=== PATIENT | female | born 1960 | race Two or more races ===

== ENCOUNTER 2025-02-08 | Outpatient (REF) | payer OTHER, SELFPAY ==
--- OUTSIDE RECORDS SUMMARY | 2025-02-08 10:00 | XMS_ITS | Encounter Summary ---
Author Organization [facility] Address [address] [place] [address] Care Team Providers Care Pick And Shovel Man Name Role Phone Unavailable Primary Care Provider Unavailabl e Reason for Visit * Reason Comments ovarian mass Endometriosis Encounter Details Date Type Department Care Team (Late st Contact Info) Description 02/08/2025 10:00 AM EDT Office Visit [facility] [address] [place] [address] Ceferino Barboza DO [address] [place], [place] [id number] Ovarian mass; Enlarged uterus; Endometrial thickening on ultrasound; Cervical mass Social History Tobacco Use Types Packs/Day Years Used Date Smoking Tobacco: Never Assessed Comments No Sex and Gender Information Value Date Recorded Sex Assigned at Not on file Legal Sex Female 9:08 AM EDT Gender Identity Not on file Sexual Orientation Not on file documented as of this encounter Last Filed Vital Signs Vital Sign Reading Time Taken Comments Blood Pressure 110/70 02/08/2025 10:10 AM EDT Pulse - - Temperature - - Respiratory Rate - - Oxygen Saturation - - Inhaled Oxygen Concentration - - Weight 99.8 kg (220 lb) 02/08/2025 10:10 AM EDT Height 167.6 cm (5' 6 ) 02/08/2025 10:10 AM EDT Body Mass Index 35.51 02/08/2025 10:10 AM EDT documented in this encounter Progress Notes * Debra Salas LPN - 02/08/2025 10:00 AM EDT Reason for Appointment: Patient ID: Adrienne Kirby is a 64 y.o. female who presents for ovarian mass and Endometriosis Patient presents today for Consult appointment. MEDICATIONS Current Outpatient Medications Medication Instructions busPIRone (BUSPAR) 15 mg, 2 times daily hydroCHLOROthiazide (HYDRODIURIL) 12.5 mg, Daily olmesartan (BENICAR) 10 mg, Daily verapamil (CALAN) 80 mg, Twice a day (mid-day and evening) ALLERGIES Not on File PROBLEMS Active Ambulatory Problems Diagnosis Date Noted No Active Ambulatory Problems Resolved Ambulatory Problems Diagnosis Date Noted No Resolved Ambulatory Problems Past Medical History: Diagnosis Date Anxiety about health Basal cell carcinoma Chronic kidney disease, stage 3 ([facility]) High blood pressure HISTORY PAST MEDICAL HISTORY SOCIAL HISTORY Past Medical History: Diagnosis Date Anxiety about health Basal cell carcinoma Chronic kidney disease, stage 3 ([facility]) High blood pressure Social History Tobacco Use Smoking status: Not on file Smokeless tobacco: Not on file Substance Use Topics Alcohol use: Not on file Drug use: Not on file FAMILY HISTORY Family History Problem Relation Name Age of Onset Lung disease Mother Heart attack Father Stroke Father SURGICAL HISTORY Past Surgical History: Procedure Laterality Date RETINAL DETACHMENT SURGERY SKIN GRAFT REVIEW OF SYSTEMS Review of Systems: Review of Systems Constitutional: Negative. HENT: Negative. Eyes: Negative. Respiratory: Negative. Cardiovascular: Negative. Gastrointestinal: Negative. Genitourinary: Negative. Musculoskeletal: Negative. Skin: Negative. Neurological: Negative. All other systems reviewed and are negative. Hematological: Negative. Endocrine: Negative. Allergic/Immunologic: Negative. OBJECTIVE Objective: Physical Exam Constitutional: Appearance: Normal appearance. She is well-developed. Genitourinary: Vulva normal. Cardiovascular: Rate and Rhythm: Normal rate and regular rhythm. Pulmonary: Effort: Pulmonary effort is normal. Breath sounds: Normal breath sounds. Abdominal: General: Bowel sounds are normal. There is no distension. Palpations: Abdomen is soft. Tenderness: There is no abdominal tenderness. There is no guarding or rebound. Musculoskeletal: General: No swelling. Normal range of motion. Right lower leg: No edema. Left lower leg: No edema. Neurological: Mental Status: She is alert and oriented to person, place, and time. Skin: General: Skin is warm and dry. Psychiatric: Mood and Affect: Mood normal. Behavior: Behavior normal. Vitals and nursing note reviewed. Exam conducted with a assembly mechanic present. Vitals: Estimated body mass index is 35.51 kg/m?? as calculated from the following: Height as of this encounter: 5' 6 . Weight as of this encounter: 220 lb. BP: 110/70 No LMP recorded. Patient is postmenopausal. ASSESSMENT & PLAN ICD-10-CM 1. Ovarian mass N83.8 2. Enlarged uterus N85.2 3. Endometrial thickening on ultrasound R93.89 Pt presents as a follow up. Reviewed labs and ultrasound with pt in detail. Pt CA125 is elevated and will be referred to [facility] for total hysterectomy. Pt voiced understanding. Discussed doing embx in office, pt considering. Pt has high anxiety regarding all testing and results. Upon pelvic exam with speculum, mass protruding from cervical os, removed from cervix with ring forcep, sent to pathology. Pt will await referral to Dr Tabor Documented by Derba Salas LPN on behalf of: Ceferino Barboza DO documented in this encounter Plan of Treatment Not on file documented as of this encounter Visit Diagnoses Diagnosis Ovarian mass Unspecified noninflammatory disorder of ovary, fallopian tube, and broad ligament Enlarged uterus Hypertrophy of uterus Endometrial thickening on ultrasound Cervical mass Other specified noninflammatory disorder of cervix documented in this encounter
--- OUTSIDE RECORDS SUMMARY | 2025-02-15 10:00 | XMS_ITS | Encounter Summary ---
Author Organization [employer] [facility] tem Address [id number] [address] [place] [address] Care Team Providers Care Aerodynamicist Name Role Phone Unavailable Primary Care Provider Unavailabl e Reason for Referral * Cardiology (Routine) - Authorized Specialty Diagnoses / Procedures Referred By Contac t Referred To Contact Diagnoses Ovarian mass Preoperative clearance Procedures ECG 12 lead Lynda Anders MD [address] [place] [address], [address] [place] [address] Phone: tel: fax: Referral ID Status Reason Start Date Expiration Date V isits Requested Visits Authorized [id number] Authorized 02/15/2025 02/15/2026 1 1 Reason for Visit * Reason Comments New Patient * Consultation (Routine) - Pending Review Specialty Diagnoses / Procedures Referred By Contact Referred To Contact Oncology / Gynecologic Oncology Diagnoses Ovarian mass Endometriosis [facility] Gynecology Oncology, A Department of [address] [place] [address] Phone: tel: fax: [facility] Gynecology Oncology, A Department of [address] [place] [address] Phone: tel: fax: Referral ID Status Reason Start Date Expiration Date Visits Requested Visits Authorized [id number] Pending Review Specialty Services Required 02/09/2025 02/09/2026 1 1 Encounter Details Date Type Department Care Team (Late st Contact Info) Description 02/15/2025 10:00 AM EDT Office Visit [facility] Gynecology Oncology, A Department of [address] [place] [address] Lynda Anders MD [address] [place] [address], [address] [place] [address] Cervical mass (Primary Dx); Ovarian mass; Thickened endometrium Social History Tobacco Use Types Packs/Day Years Used Date Smoking Tobacco: Former Cigarettes Smokeless Tobacco: Never Tobacco Cessation:Counseling Given: Not Answered Alcohol Use Standard Drinks/Week Comments Yes 4 (1 standard drink = 0.6 oz pur e alcohol) ocassionally Comments Unknown Sex and Gender Information Value Date Recorded Sex Assigned at Not on file Legal Sex Female 1:20 PM EDT Gender Identity Not on file Sexual Orientation Not on file documented as of this encounter Last Filed Vital Signs Vital Sign Reading Time Taken Comments Blood Pressure 117/73 02/15/2025 10:45 AM EDT Pulse 92 02/15/2025 10:45 AM EDT Temperature - - Respiratory Rate 18 02/15/2025 10:0 2 AM EDT Oxygen Saturation 96% 02/15/2025 10: 45 AM EDT Inhaled Oxygen Concentration - - Weight 100.2 kg (220 lb 12.8 oz) 02/15/2025 9:52 AM EDT Height - - Body Mass Index - - documented in this encounter Progress Notes * Lynad Anders MD - 02/15/2025 10:00 AM EDT Subjective: Adrienne is a 64 y.o. female here for consultation from for evaluation and management of thickened endometrium and left adnexal mass in the setting of CA 125 [id number]. Patient reports she began noticing some left lower quadrant pain recently that is sharp and intermittent. She reports having gone through menopause 10 years ago, but has had intermittent bleeding/brown discharge for quite a while. She has not had regular gynecologic care and reports no history of abnormal pap smears, but cannot remember the last time she had a pap smear. She denies any changes to her bowel/bladder habits.She has had a recent decrease in her appetite, but no weight loss or nausea/vomiting. Of note, during the review of the patient's recent testing and results she had a syncopal episode. She did not lose muscle tone and her vitals remained without abnormality with BP 118/73 and pulse 77. She was awakened and had no disorientation or confusion regarding the episode. She reports a longstanding history of syncopal episodes during times of stress/anxiety particularly in the medical setting. Oncology History No overview note Adrienne : Denies Early satiety Denies Abdominal distention Denies Leg swelling Denies Shortness of breath Reports Vaginal bleeding Denies Change in bowel habits Denies Change in bladder habits Denies Nausea and vomiting All other systems negative, unless specifically noted in HPI. Past Gynecologic History: OB History No obstetric history on file. No LMP recorded. Hormonal Contraceptives No HRT use No History of abnormal pap No History reviewed. No pertinent surgical history. Past Medical History: Diagnosis Date Anxiety Chronic kidney disease, stage 3 unspecified ([facility]) Hypertension History reviewed. No pertinent family history. Social History Tobacco Use Smoking status: Former Types: Cigarettes Smokeless tobacco: Never Substance Use Topics Alcohol use: Yes Alcohol/week: 4.0 standard drinks of alcohol Types: 2 Glasses of wine, 2 Shots of liquor per week Comment: ocassionally Review of Symptoms: Pertinent items are noted in HPI. Objective: Patient was offered a medical communications equipment supervisor, and all sensitive parts of the examination were performed with the Optical Laboratory Technician of today's record present, unless otherwise indicated. BP 117/73 Pulse 92 Resp 18 Wt 100.2 kg (220 lb 12.8 oz) SpO2 96% ECO- Asymptomatic General appearance: alert, appears stated age and cooperative Head: Normocephalic, without obvious abnormality, atraumatic Neck: no adenopathy, no carotid bruit, no JVD, supple, symmetrical, trachea midline and thyroid notenlarged, symmetric, no tenderness/mass/nodules Lungs: clear to auscultation bilaterally Breasts: deferred Heart: regular rate and rhythm, S1, S2 normal, no murmur, click, rub or gallop Abdomen: obese, soft, NT/ND Pelvic: cervix completely replaced with friable tumor with involvement of the surrounding vagina, external genitalia normal, uterus enlarged to 16 week size with limited mobility Extremities: extremities normal, atraumatic, no cyanosis or edema Lymph nodes: Cervical, supraclavicular, and axillary nodes normal. 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 Cervical mass: Reviewed with the patient her imaging findings in detail revealing a large predominantly solid left adnexal mass, mass of the lower uterine segment/cervix, and thickened/heterogenous endometrium. No obvious metastatic disease was present. We also reviewed her examination findings of significant cervical and vaginal tumor burden. A biopsy of the cervical mass was obtained in the office today. The patient will RTC after biopsy results for further results review and discussion oftreatment planning. She expressed understanding and is in agreement with the plan of care. 2. Syncopal episode: Patient with vasovagal response to anxiety-provoking situation. Ordered CBC/CMP/EKG today to further evaluate any other possible underlying causes of her episode today. Total time spent was 70 minutes: Preparing to see the patient (e.g., review of tests) Obtaining and/or reviewing separately obtained history Performing a medically appropriate examination and/or evaluation Counseling and educating the patient/family/caregiver Ordering medications, tests, or procedures Referring and communicating with other health care program resident (not separately reported) Documenting clinical information in the electronic or other health record Independently interpreting results (not separately reported) and communicating results to the patient/family/caregiver Care coordination (not separately reported) LYNDA ANDERS MD documented in this encounter Plan of Treatment Upcoming Encounters Date Type Department Care Team (Late st Contact Info) Description 02/24/2025 10:00 AM EDT Office Visit [facility] Gynecology Oncology, A Department of [facility] [address] [place] [id number] Lynda Anders MD [address] [facility], [address] [place] [address] Pending Results Name Type Priority Associated Diagnoses Date /Time Surgical Pathology Pathology and Cytology STAT Cervical mass 02/15/2025 11:47 AM EDT Scheduled Orders Name Type Priority Associated Diagnoses Orde r Schedule Inhibin B, S Lab Routine Ovarian mass 1 Occurrences starting 02/15/2025 until 02/15/2026 Inhibin-A (Dimer) Lab Routine Ovarian mass 1 Occurrences starting 02/15/2025 until 02/15/2026 ECG 12 lead ECG Routine Ovarian mass 1 Occurrences starting 02/15/2025 until 02/15/2026 CBC with auto diff Lab Routine Ovarian mass 1 Occurrences starting 02/15/2025 until 02/15/2026 Comprehensive metabolic panel Lab Routine Ovarian mass 1 Occurrences starting 02/15/2025 until 02/15/2026 documented as of this encounter Visit Diagnoses Diagnosis Cervical mass- Primary Other specified noninflammatory disorder of cervix Ovarian mass Unspecified noninflammatory disorder of ovary, fallopian tube, and broad ligament Thickened endometrium Nonspecific (abnormal) findings on radiological and other examination of genitourinary organs documented in this encounter
--- OUTSIDE RECORDS SUMMARY | 2025-02-21 12:13 | XMS_ITS | Continuity of Care Document ---
Author Organization [facility] Address [address] [place] [address] Phone [phone] Care Team Providers Care Management Department Chair Name Role Phone Katie Vera D.O. 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 Random 01/10/2025 [facility] [address] [place] [address] .Urine Protein Random 24.2 .Urine Creatinine Random 159.1 .Urine Prot/Creat Ratio 15.20 .Renal Panel (FT) 01/10/2025 [facility] [address] [place] [address] .Albumin 4.2 .Calcium 10.0 .Chloride 102 .Sodium 138 .Potassium 3.8 Carbon Dioxide-Unspec Spec 28 Phosphorus QN Serum/Plasma 3.1 BUN - Urea Nitrogen Mol/Vol 30 .Creatinine-LC 1.5 .Hemoglobin And Hematocrit 06/21/[address] [address] [phone] .Hemoglobin Blood 15.3 .Hematocrit 45.2 .Magnesium 06/21/[address] [address] [phone] .Magnesium 2.2 .Renal Panel 06/21/[address] [address] [phone] .Albumin 4.3 .Calcium 9.8 .Carbon Dioxide 27 .Chloride 104 .Potassium 3.7 .Sodium 139 .BUN 23 .GFR 39 High 20 .Creatinine-LC 1.5 .V Ipth-Vitamin D 06/21/[address] [address] [phone] .Ipth 34 .Vitamin D, 25 Hydroxy 28.8 .Urine Protein/Creat. Random 06/21/[address] [address] [phone] .Urine Protein Random <6.0 .Urine Creatinine Random 118.6 .Urine Prot/Creat Ratio UTC .Urine Protein/Creat. Random 12/22/[address] [address] [phone] .Urine Protein Random 7.1 .Urine Creatinine Random 86.7 .Urine Prot/Creat Ratio 8.20 Vitamin D 25 Hydroxy 12/22/[address] [address] [phone] Z#Misc Test 17.9 PTH Intact W/Calcium 12/22/[address] [address] [phone] Z#Misc Test 75 .Renal Panel 12/22/[address] [address] .Albumin 4.3 .Calcium 9.5 .Carbon Dioxide 27 .Chloride 103 .Potassium 3.7 .Sodium 138 .BUN 24 .GFR 39 High 20 .Creatinine-LC 1.5 .Renal Panel 06/16/[address] [address] .Albumin 4.0 .Calcium 9.5 .Carbon Dioxide 27 .Chloride 103 .Phosphorus 2.9 .Potassium 3.6 .Sodium 139 .BUN 23 .GFR 47 High 20 .Creatinine-LC 1.3 .Ua 06/16/[address] [address] [phone] Ua Appearance SL CLOUDY Ua Bacteria 1+ Ua Bilirubin NEGATIVE Ua Blood 2+ Ua Color YELLOW Ua Crystals Unidentified PRESENT Ua Epithelial Cells QL >10 Ua Glucose NEGATIVE Ua Ketones NEGATIVE Ua Leuko 1+ Ua Nitrite NEGATIVE Ua PH Test Strip 6.0 Ua Protein NEGATIVE Ua RBC 4-20 Ua Source CLEAN CATCH Ua Specific Lund >=1.030 Ua Urobilinogen 0.2 Ua WBC 6-15 .Urine Protein/Creat. Random 06/16/[address] [address] .Urine Protein Random 18.6 .Urine Creatinine Random 193.8 .Urine Prot/Creat Ratio 9.60 .Renal Panel 11/27/[address] [address] .Albumin 3.7 .Calcium 9.2 .Carbon Dioxide 26 .Chloride 105 .Phosphorus 3.1 .Potassium 3.5 .Sodium 139 .BUN 26 .GFR 40 High 20 .GFR <pending> 20 .Creatinine-LC 1.5 .Ua 11/27/[address] [address] [phone] Ua Appearance CLEAR Ua Bacteria TRACE Ua Bilirubin NEG Ua Blood TRACE Ua Casts <pending> Ua Casts Other <pending> Ua Color YELLOW Ua Crystals Unidentified PRESENT AMORPH Ua Epithelial Cells QL 0-2 Ua Glucose NEG Ua Ketones NEG Ua Leuko NEG Ua Nitrite NEG Ua PH Test Strip 5.5 Ua Protein NEG Ua RBC 0-3 Ua Source CLEAN CATCH Ua Specific Lund >=1.030 Ua Urobilinogen 0.2 Ua WBC 6-15 Ua Yeast <pending> .Urine Protein/Creat. Random 11/27/[address] [address] .Urine Protein Random 9.7 .Urine Creatinine Random 164.7 .Urine Prot/Creat Ratio 58.90 .Renal Panel 06/17/[address] [address] [phone] .Albumin 3.9 .Calcium 9.4 .Carbon Dioxide 27 .Chloride 104 .Phosphorus 3.3 .Potassium 3.9 .Sodium 138 .BUN 23 .GFR 46 High 20 .GFR 38 High 20 .Creatinine-LC 1.4 .Ua 06/17/[address] [address] Ua Appearance Clear Ua Bacteria Trace Ua Bilirubin Negative Ua Blood 1+ Ua Color Yellow Ua Glucose Negative Ua Ketones Negative Ua Leuko Negative Ua Nitrite Negative Ua PH Test Strip 5.5 Ua Protein Negative Ua RBC 4-20 Ua Source Clean Catch Ua Specific Lund >=1.030 Ua Urobilinogen 0.2 Ua WBC 6-15 .Urine Protein/Creat. Random 06/17/[address] [address] [phone] .Urine Protein Random 9.4 .Urine Creatinine Random 148.5 .Urine Prot/Creat Ratio 63.30 .Renal Panel 12/03/[address] [address] [phone] .Albumin 4.0 .Calcium 9.7 .Carbon Dioxide 27 .Chloride 99 .Creatinine-LC 1.6 .Phosphorus 3.0 .Sodium 137 .BUN 24 .GFR-LC 33 High 20 .Potassium 3.7 .Renal Panel 06/28/[address] [address] .Albumin 4.1 .Calcium 9.8 .Carbon Dioxide 26 .Chloride 104 .Creatinine-LC 1.4 .Phosphorus 3.0 .Sodium 142 .BUN 24 .GFR-LC 38 High 20 .Potassium 3.8 .Renal Panel 12/20/[address] [address] [phone] .Albumin 4.1 .Calcium 9.2 .Carbon Dioxide 28 .Chloride 102 .Creatinine-LC 1.5 .Phosphorus 2.5 .Sodium 140 .BUN 33 .GFR-LC 36 High 20 .Potassium 4.0 Xray 07/13/[address] [address] [phone] Ultrasound Kidneys SEE REPORT .Renal Panel 06/05/[address] [address] .Albumin 4.2 .Calcium 9.6 .Carbon Dioxide 28 .Chloride 102 .Creatinine-LC 1.3 .Phosphorus 3.1 .Sodium 139 .BUN 24 .GFR-LC 42 High 20 .Potassium 3.9 Xray 06/24/[address] [address] [place], Abdomen, W/ & W/O Contrast see report .Magnesium 06/16/[address] [address] .Magnesium 2.1 .Renal Panel-Lab Quirino 06/16/[address] [address] [phone] .Albumin 4.2 .Calcium 9.4 .Carbon Dioxide 24 .Chloride 103 .Creatinine-LC 1.1 .Phosphorus 2.9 .Potassium 3.6 .Sodium 137 .BUN 20 .GFR-LC 51 High 20 .Urinalysis-Rou dagoberto 06/16/[address] [address] [phone] Ua Specific Lund 1.025 Ua PH Test Strip 5.5 Ua Color Yellow Ua Appearance Clear Ua WBC TRACE Ua Protein Neg Ua Glucose Neg Ua Ketones Neg Ua Bilirubin Neg Ua Urobilinogen 0.2 Ua Nitrite Neg Ua Occult Blood Neg .Free Light Chains 06/16/[address] [address] [phone] [place] Light Chains QN Ser 23.0 Lambda Light Chain QN Ser 13.? .Urine Protein/Creat. Random 06/16/[address] [address] [phone] .Urine Protein Random <6.0 .Urine Creatinine Random 106.6 .Urine Prot/Creat Ratio <56 .Complement C4 06/16/[address] [address] [phone] .Complement C4 33 .Complement C3 06/16/[address] [address] [phone] .Complement C3 135 .Hematocrit 06/16/[address] [address] .Hematocrit 43.8 .Hemoglobin Blood 06/16/[address] [address] .Hemoglobin Blood 14.8 .Anti-Proteinas e-3 AB 06/16/[address] [address] .Anti-Proteinase -3 AB 5.0 .Anti-Myelopero xidase Abs 06/16/2019 [place] [id number] .Anti-Myeloperox idase Abs <9.0 .Immunofixation -Urine 06/16/[address] [address] .Immunofixation- Urine NO MONOCLONAL .Immunofixation -Serum 06/16/[address] [address] [phone] .Immunofixation- Serum NO MONOCLONAL .Ipth 06/16/[address] [address] .Ipth 53 Xray 02/20/2019 [facility], Renal SEE REPORT .Renal Panel 02/17/2019 [facility] [phone] .Albumin 4.3 .Calcium 10.2 .Carbon Dioxide 23 .Chloride 100 .Creatinine-LC 1.2 .Sodium 138 .BUN 23 .GFR-LC 46 High 20 .Potassium 3.7 .Renal Panel 11/01/2016 [facility] [phone] .Albumin 4.1 .Calcium 9.6 .Carbon Dioxide 26 .Chloride 103 .Creatinine-LC 1.1 .Sodium 138 .BUN 21 .GFR-LC 52 High 20 .Potassium 3.3 Encounters Type Date Location Provider Dx Diagnosis Office Visit 01/31/2025 10:30a [facility] Dayton Mccall MD I13.10 Hyp hrt & chr k dny dis w/o hrt fail, w stg 1-4/unsp chr kdny E55.9 Vitamin D deficiency , unspecified N28.1 Cyst of kidney, acqu ired N18.32 Chronic kidney disea se, stage 3b Office Visit 08/03/2024 12:00p [place] [facility] Raciel Ruffin, MARKETING AND OUTREACH COORDINATOR-C I13.10 Hyp hrt & chr kdny dis w/o hrt fail, w stg 1-4/unsp chr kdny E55.9 Vitamin D deficiency , unspecified N28.1 Cyst of kidney, acqu ired N18.32 Chronic kidney disea se, stage 3b Office Visit 01/02/2024 11:20a [place] [facility] Raciel Ruffin NP-C I13.10 Hyp hrt & chr kdny dis w/o hrt fail, w stg 1-4/unsp chr kdny E55.9 Vitamin D deficiency , unspecified N28.1 Cyst of kidney, acqu ired N18.32 Chronic kidney disea se, stage 3b Office Visit 06/20/2023 9:30a [place] [facility] Ileana Ruffin NP-C I13.10 Hyp hrt & chr kdny dis w/o hrt fail, w stg 1-4/unsp chr kdny N28.1 Cyst of kidney, acqu ired N18.31 Chronic kidney disea se, stage 3a Office Visit 12/19/2022 10:00a [facility] Teo Larios I13.10 Hyp hrt & chr kdny dis w/o hrt fail, w stg 1-4/unsp chr kdny N28.1 Cyst of kidney, acqu ired N18.32 Chronic kidney disea se, stage 3b Office Visit 06/24/2022 10:30a [facility] Teo Larios I13.10 Hyp hrt & chr kdny dis w/o hrt fail, w stg 1-4/unsp chr kdny N28.1 Cyst of kidney, acqu ired N18.32 Chronic kidney disea se, stage 3b Office Visit 12/19/2021 9:00a [facility] Walt Reyna I13.10 Hyp hrt & chr kdny dis w/o hrt fail, w stg 1-4/unsp chr kdny N28.1 Cyst of kidney, acqu ired N18.32 Chronic kidney disea se, stage 3b Office Visit 07/04/2021 12:00p [facility] Teo Larios I13.10 Hyp hrt & chr kdny dis w/o hrt fail, w stg 1-4/unsp chr kdny N28.1 Cyst of kidney, acqu ired N18.32 Chronic kidney disea se, stage 3b Office Visit 01/02/2021 2:00p [facility] Awa Larios I13.10 Hyp hrt & chr kdny dis w/o hrt fail, w stg 1-4/unsp chr kdny N28.1 Cyst of kidney, acqu ired N18.32 Chronic kidney disea se, stage 3b Office Visit 07/04/2020 2:00p [facility] Walt Reyna I13.10 Hyp hrt & chr kdny dis w/o hrt fail, w stg 1-4/unsp chr kdny N28.1 Cyst of kidney, acqu ired N18.32 Chronic kidney disea se, stage 3b Office Visit 06/25/2019 3:20p [facility] Walt Reyna I13.10 Hyp hrt & chr kdny dis w/o hrt fail, w stg 1-4/unsp chr kdny N18.3 Chronic kidney disea se, stage 3 (moderate) N28.1 Cyst of kidney, acqu ired Office Visit 05/14/2019 2:20p [place] [facility] Walt Reyna I13.10 Hyp hrt & chr kdny dis w/o hrt fail, w stg 1-4/unsp chr kdny N18.3 Chronic kidney disea se, stage 3 (moderate) N28.1 Cyst of kidney, acqu ired Assessments Date Code Description Provider 01/31/2025 I13.10 Hypertensive hea rt and chronic kidney disease without heart failure, with stage 1 through stage 4 chronic kidney disease, or unspecified chronic kidney disease Dayton Mccall MD 01/31/2025 E55.9 Vitamin D deficiency, unspec ified Dayton Mccall MD 01/31/2025 N28.1 Cyst of kidney, acquired Zoya Mccall MD 01/31/2025 N18.32 Chronic kidney disease, gumaro Mccall MD 08/03/2024 I13.10 Hypertensive hea rt and chronic kidney disease without heart failure, with stage 1 through stage 4 chronic kidney disease, or unspecified chronic kidney disease NEWTON Joseph 08/03/2024 E55.9 Vitamin D deficiency, unspec ified Rose Ruffin NP-C 08/03/2024 N28.1 Cyst of kidney, acquired [place] Bella 08/03/2024 N18.32 Chronic kidney disease, RADHA BeebeC 01/02/2024 I13.10 Hypertensive hea rt and chronic kidney disease without heart failure, with stage 1 through stage 4 chronic kidney disease, or unspecified chronic kidney disease RADHA JosephC 01/02/2024 E55.9 Vitamin D deficiency, unspec ified Rose Ruffin NP-C 01/02/2024 N28.1 Cyst of kidney, acquired RADHA BellaC 01/02/2024 N18.32 Chronic kidney disease, stanoemy Ruffin NP-C 06/20/2023 I13.10 Hypertensive hea rt and chronic kidney disease without heart failure, with stage 1 through stage 4 chronic kidney disease, or unspecified chronic kidney disease [place] Joseph 06/20/2023 N28.1 Cyst of kidney, acquired [place] Bella 06/20/2023 N18.31 Chronic kidney disease, stavadim e 3a [place] Joseph 12/19/2022 I13.10 Hypertensive hea rt and chronic kidney disease without heart failure, with stage 1 through stage 4 chronic kidney disease, or unspecified chronic kidney disease Awa Larios 12/19/2022 N28.1 Cyst of kidney, acquired Jam eson, Awa 12/19/2022 N18.32 Chronic kidney disease, stag e 3b RicAwa 06/24/2022 I13.10 Hypertensive hea rt and chronic kidney disease without heart failure, with stage 1 through stage 4 chronic kidney disease, or unspecified chronic kidney disease Awa Larios 06/24/2022 N28.1 Cyst of kidney, acquired Jam eson, Awa 06/24/2022 N18.32 Chronic kidney disease, stag e 3b Awa Larios 12/19/2021 I13.10 Hypertensive hea rt and chronic kidney disease without heart failure, with stage 1 through stage 4 chronic kidney disease, or unspecified chronic kidney disease Dayton Mccall MD 12/19/2021 N28.1 Cyst of kidney, acquired Zoya Mccall MD 12/19/2021 N18.32 Chronic kidney disease, stavadim e 3b Dayton Mccall MD 07/04/2021 I13.10 Hypertensive hea rt and chronic kidney disease without heart failure, with stage 1 through stage 4 chronic kidney disease, or unspecified chronic kidney disease Awa Larios 07/04/2021 N28.1 Cyst of kidney, acquired Jam eson, Awa 07/04/2021 N18.32 Chronic kidney disease, stag e 3b Teo Lariosa 01/02/2021 I13.10 Hypertensive hea rt and chronic kidney disease without heart failure, with stage 1 through stage 4 chronic kidney disease, or unspecified chronic kidney disease Awa Larios 01/02/2021 N28.1 Cyst of kidney, acquired Jam eson, Awa 01/02/2021 N18.32 Chronic kidney disease, stag e 3b Awa Larios 07/04/2020 I13.10 Hypertensive hea rt and chronic kidney disease without heart failure, with stage 1 through stage 4 chronic kidney disease, or unspecified chronic kidney disease Dayton Mccall MD 07/04/2020 N28.1 Cyst of kidney, acquired Zoya Mccall MD 07/04/2020 N18.32 Chronic kidney disease, stag e 3b Dayton Mccall MD 06/25/2019 I13.10 Hypertensive hea rt and chronic kidney disease without heart failure, with stage 1 through stage 4 chronic kidney disease, or unspecified chronic kidney disease Dayton Mccall MD 06/25/2019 N18.3 Chronic kidney disease, stag e 3 (moderate) Dayton Mccall MD 06/25/2019 N28.1 Cyst of kidney, acquired Zoya Mccall MD 05/14/2019 I13.10 Hypertensive hea rt and chronic kidney disease without heart failure, with stage 1 through stage 4 chronic kidney disease, or unspecified chronic kidney disease Dayton Mccall MD 05/14/2019 N18.3 Chronic kidney disease, stag e 3 (moderate) Dayton Mccall MD 05/14/2019 N28.1 Cyst of kidney, devante Mccall MD
--- OUTSIDE RECORDS SUMMARY | 2025-02-21 12:13 | XMS_ITS | Encounter Summary ---
Author Organization [facility] Address [address] [place] [address] Care Team Providers Care Igniter Assembler Name Role Phone Unavailable Primary Care Provider Unavailabl e Encounter Details Date Type Department Care Team (Late st Contact Info) Description 02/09/2025 External Result Encounter [facility] External Department Unsolicited Ceferino Barboza, DO [address] [place], [place] [id number] Social History Tobacco Use Types Packs/Day Years Used Date Smoking Tobacco: Never Assessed Comments No Sex and Gender Information Value Date Recorded Sex Assigned at Not on file Legal Sex Female 9:08 AM EDT Gender Identity Not on file Sexual Orientation Not on file documented as of this encounter Plan of Treatment Not on file documented as of this encounter Procedures Procedure Name Priority Date/Time Associated Diagnosis Comments PATHOLOGY REQUEST FOR LAB ALLISON Routine 02/09/2025 12:00 AM EDT documented in this encounter Results * PATHOLOGY REQUEST FOR LAB ALLISON (02/09/2025 12:00 AM EDT) PATHOLOGY REQUEST FOR LAB ALLISON 02/18/2025 2:54 PM EDT [facility] Comment:See report. Scanned copy available in EMR. Other Topography unknown / Unknown 02/09/2025 02/10/2025 10:49 AM EDT Narrative [facility] - 02/18/2025 2:54 PM EDT CERVICAL MASS us Ceferino Barboza DO LAB BLOOD ORDERABLES Final Resul t [facility] [address] [place] [address], [facility] [address] [place] [address] documented in this encounter Visit Diagnoses Not on filedocumented in this encounter
--- OUTSIDE RECORDS SUMMARY | 2025-02-21 12:13 | XMS_ITS | Encounter Summary ---
[facility] Address [id number] [address] [place] [address] Care Team Providers Care Artist Model Name Role Phone Unavailable Primary Care Provider Unavailabl e Encounter Details Date Type Department Care Team (Late Contact Info) Description 02/11/2025 Telephone [facility], [facility] Department of [address] [place] [address] Jessa Oseguera RN Social History Tobacco Use Types Packs/Day Years Used Date Smoking Tobacco: Never Assessed Comments Unknown Sex and Gender Information Value Date Recorded Sex Assigned at Not on file Legal Sex Female 1:20 PM EDT Gender Identity Not on file Sexual Orientation Not on file documented as of this encounter Miscellaneous Notes * Telephone Encounter - Jessa Oseguera RN - 02/11/2025 10:57 AM EDT Ultrasound and CT imaging completed on 02/02 requested to be pushed to [facility] PACS from [employer] documented in this encounter Plan of Treatment Upcoming Encounters Date Type Department Care Team (Late Contact Info) Description 02/24/2025 10:00 AM EDT Office Visit [facility] Oncology, A Department of [address] [place] [address] Lynda Anders MD [address] [place] [address], [address] [place] [address] documented as of this encounter Visit Diagnoses Not on filedocumented in this encounter
--- OUTSIDE RECORDS SUMMARY | 2025-02-21 12:13 | XMS_ITS | Encounter Summary ---
Author Organization [facility] Address [address] [place] [address] Care Team Providers Care Cuff Slitter Name Role Phone Unavailable Primary Care Provider Unavailabl e Encounter Details Date Type Department Care Team (Late st Contact Info) Description 02/08/2025 Bamboo flowsheet [facility] [address] [place] [address] Ceferino Barboza DO [address] [place] [address] Social History Tobacco Use Types Packs/Day Years [...]
--- OUTSIDE RECORDS SUMMARY | 2025-02-21 12:13 | XMS_ITS | Clinical Summary ---
Author Organization [facility] Address [address] [place] [address] Care Team Providers Care Burnt Lime Drawer Name Role Phone Unavailable Primary Care Provider Unavailabl e Medications olmesartan (BENIcar) 20 MG tablet Take 10 mg by mouth Daily 12/19/2024 Active hydroCHLOROthia zide (HYDRODiuril) 12.5 MG tablet Take 12.5 mg by mouth Daily 12/19/2024 Active verapamil (Calan) 80 MG tablet Take 80 mg by mouth at noon and 80 mg in the evening. 12/19/2024 Active busPIRone (Buspar) 15 MG tablet Take 15 mg by mouth in the morning and 15 mg before bedtime. 12/19/2024 Active Encounters Date Type Department Care Team Description 02/09/2025 External Result Encounter [facility] External Department Unsolicited Ceferino Barboza, 02/08/2025 10:00 AM EDT Office Visit [facility] [address] [place], [place] [address] [address] Ceferino Barboza, DO Ovarian mass; Enlarged uterus; Endometrial thickening on ultrasound; Cervical mass 02/08/2025 Abstract [facility] [place] [address] Ceferino Barboza, DO 02/08/2025 Telephone [facility] [address] [place], [place] [address] [address] Ceferino Barboza, DO 02/08/2025 Telephone [facility] [address] [place] [address] [place] [id number] Debra Salas LPN 02/08/2025 Bamboo flowsheet [facility] [address] [place] [id number] Ceferino Barboza DO from Last 3 Months Family History Medical History Relation Name Comments Heart attack Father Stroke Father Lung disease Mother Relation Name Status Comments Father Mother Social History Tobacco Use Types Packs/Day Years Used Date Smoking Tobacco: Never Assessed Comments No Sex and Gender Information Value Date Recorded Sex Assigned at Not on file Legal Sex Female 9:08 AM EDT Gender Identity Not on file Sexual Orientation Not on file Last Filed Vital Signs Vital Sign Reading Time Taken Comments Blood Pressure 110/70 02/08/2025 10:10 AM EDT Pulse - - Temperature - - Respiratory Rate - - Oxygen Saturation - - Inhaled Oxygen Concentration - - Weight 99.8 kg (220 lb) 02/08/2025 10:10 AM EDT Height 167.6 cm (5' 6 ) 02/08/2025 10:10 AM EDT Body Mass Index 35.51 02/08/2025 10:10 AM EDT Plan of Treatment Not on file Procedures Procedure Name Priority Date/Time Associated Diagnosis Comments PATHOLOGY REQUEST FOR LAB ALLISON Routine 02/09/2025 12:00 AM EDT from Last 3 Months Results * PATHOLOGY REQUEST FOR LAB ALLISON (02/09/2025 12:00 AM EDT) PATHOLOGY REQUEST FOR LAB ALLISON 02/18/2025 2:54 PM EDT [facility] Comment:See report. Scanned copy available in EMR. Other Topography unknown / Unknown 02/09/2025 02/10/2025 10:49 AM EDT Narrative [facility] - 02/18/2025 2:54 PM EDT CERVICAL MASS Ceferino Barboza DO LAB BLOOD ORDERABLES Final Resul t [facility] [address] [place] [address], [facility] [address] [place] [address] from Last 3 Months Insurance [employer]
--- OUTSIDE RECORDS SUMMARY | 2025-02-21 12:13 | XMS_ITS | Clinical Summary ---
Author Organization [facility] [employer] [facility] tem Address [id number] [address] [place] [address] Care Team Providers Care Escrow Secretary Name Role Phone Unavailable Primary Care Provider Unavailabl e Allergies No known active allergies Medications olmesartan (BENICAR) 20 mg tablet Take 0.5 tablets (10 mg total) by mouth in the morning. 12/19/2024 Active hydroCHLOROthia zide (HYDRODIURIL) 12.5 mg tablet Take 1 tablet (12.5 mg total) by mouth daily. 09/10/2024 Active verapamiL (CALAN) 80 mg tablet Take 1 tablet (80 mg total) by mouth. 09/10/2024 Active busPIRone (BUSPAR) 15 mg tablet Take 1 tablet (15 mg total) by mouth in the morning and 1 tablet (15 mg total) before bedtime. 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 Stage 3 chronic kidney disease 06/25/2019 Retinal detachment of left eye with single break 07/18/2015 Asthma 07/08/2014 Hypertension 07/08/2014 Encounters Date Type Department Care Team Description 02/15/2025 10:00 AM EDT Office Visit [facility] Gynecology Oncology, A Department of [facility] [address] [place] [address] Lynda Anders MD Cervical mass (Primary Dx); Ovarian mass; Thickened endometrium 02/15/2025 Travel 02/13/2025 Orders Only [facility] [place] [address] External, Scanning Provider Pain (Primary Dx) 02/11/2025 Telephone [facility], A Department of [address] [place] [phone] Jessa Oseguera RN 02/02/2025 4:30 PM EDT Ancillary Procedure [facility] [address] [place] [phone] Pain 02/02/2025 3:35 PM EDT Ancillary Procedure [facility] [address] [place] [phone] Pain from Last 3 Months Social History Tobacco Use Types Packs/Day Years [...] - - Body Mass Index - - Plan of Treatment Upcoming Encounters Date Type Department Care Team (Late st Contact Info) Description 02/24/2025 10:00 AM EDT Office Visit [facility], A Department of [address] [place] [phone] Lynda Anders MD [address] [place] [address], [address] [place] [address] Health Maintenance Due Date Last Done Comments Depression Screening 1973 Adult BMI Screening 12/07/1979 DTaP,Tdap and Td Vaccines (1 - Tdap) 1980 Pap Smear 1982 Zoster (Shingles) Vaccine (1 of 2) 12/07/2011 COVID-19 Vaccine (4 - 2024-2 6 season) 2025 04/24/2021, 09/01/2020, 08/04/2020 Influenza Vaccine 01/17/2025 Tobacco Screening 02/15/2026 02/15/2025 Medical Devices Not on file Procedures Procedure Name Priority Date/Time Associated Diagnosis Comments US PELVIC COMPLETE Routine 02/02/2025 4:[address] ABDOMEN AND PELVIS WO CONT Routine 02/02/2025 3:35 PM EDT Pain from Last 3 Months Results * Ultrasound pelvic complete (02/02/2025 4:30 PM EDT) us Scanning Provider External IMG US ORDERABLES Fin al Result * CT abdomen and pelvis without contrast (02/02/2025 3:35 PM EDT) us Scanning Provider External IMG CT ORDERABLES Fin al Result from Last 3 Months Insurance [employer] Member Subscriber Plan / Payer (Ef fective 2024-Present) Name:Adrienne Kirby Relation to Subscriber:Self Name:Adrienne Kirby Payer ID:Not on file Type:Not on file Address: [address] [place] [id number]
--- OUTSIDE RECORDS SUMMARY | 2025-02-21 12:13 | XMS_ITS | Clinical Summary ---
Author Organization [facility] Address [address] [place] [address] Care Team Providers Care Junior Sales Representative Name Role Phone Natty Delaney DEEDEE Primary Care Provider [phone] Allergies No known active allergies Medications Olmesartan-Hydr ochlorothiazide (BENICAR HCT) 20-12.5 mg per tablet Take 1 tablet by mouth once daily. 0 5 Active verapamil (CALAN, ISOPTIN) 80 mg tablet Take 1 tablet by mouth twice daily. 5 Active fluticasone-paul meterol (ADVAIR DISKUS) 100-50 mcg/dose dsdv Inhale 1 Puff as instructed as needed. 5 Active IPRATROPIUM/ALB UTEROL SULFATE (COMBIVENT RESPIMAT INHALATION) Inhale as instructed. 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 History of vitrectomy 07/20/2015 Retinal detachment, rhegmatogenous, left eye 05/2015 Retinal detachment of left eye with single break 07/18/2015 Wound disruption, post-op, skin 07/27/2014 Mohs defect of forehead 07/11/2014 Skin cancer of forehead 07/08/2014 Hypertension 07/08/2014 Asthma 07/08/2014 Family History Medical History Relation Comments Macular Degen Father dry None Father Macular Degen Mother dry Stroke Mother Relation Status Comments Father Mother Alive Social History Tobacco Use Types Packs/Day Years Used Date Smoking Tobacco: Never Smokeless Tobacco: Never Alcohol Use Standard Drinks/Week Comments Yes 0 (1 standard drink = 0.6 oz pur e alcohol) rare Comments No Sex and Gender Information Value Date Recorded Sex Assigned at Not on file Legal Sex Female 4:42 PM EST Gender Identity Not on file Sexual Orientation Not on file Last Filed Vital Signs Vital Sign Reading Time Taken Comments Blood Pressure 150/68 11/27/2015 11:10 AM EDT Pulse 82 11/27/2015 11:10 AM EDT Temperature 36.3 C (97.4 F) 11/27/2015 9:31 AM EDT Respiratory Rate 16 11/27/2015 11:10 AM EDT Oxygen Saturation 95% 11/27/2015 11:10 AM EDT Inhaled Oxygen Concentration - - Weight 108.9 kg (240 lb) 11/22/2015 3:42 PM EDT Height 170.2 cm (5' 7 ) 11/22/2015 3:42 PM EDT Body Mass Index 37.59 11/22/2015 3:42 PM EDT Plan of Treatment Health Maintenance Due Date Last Done Comments Anxiety Screening 12/07/1979 Depression Screening 12/07/1979 HIV Screening 12/07/1979 Hepatitis C Screening 12/07/1979 DTaP,Tdap,Td Vaccine (1 - Tdap) 1980 Cervical Cancer Screening [address] Colonography 2006 Cologuard (FIT-DNA) 2006 Colonoscopy 2006 Colorectal Cancer Screening 2006 Diabetes Screening 2006 Fecal Occult Blood 2006 Lipid Screening 2006 Sigmoidoscopy 2006 Pneumococcal Vaccine: 50+ (1 of 1 - PCV) 12/07/2011 Shingrix Vaccine (1 of 2) 12/07/2011 Influenza Vaccine (#1) 2025 RSV Vaccine (1 - 1-dose 75+ series) 2036 Medical Devices Implanted Type Area Holistic Health Practitioner Device Identifier Shelf Expiration Date Model / Serial / Lot Lens Acrysof Iq +11.5 Diopter 0 D Biconvex Acrylic 13mm Iol 1 Piece - [id number] Implanted:Qty : 1 on 11/27/2015 at [facility] Intraocular Lens Left: Eye - Lens [employer] [facility] 03/18/2020 [id number] 11.5 / [id number] / Insurance O [employer] PPO Care Teams Junior Sales Representative Relationship Specialty Start Date End Date Natty Delaney CNP PCP - General Family Medicine 07/07/14
--- OUTSIDE RECORDS SUMMARY | 2025-02-21 12:13 | XMS_ITS | Encounter Summary ---
Author Organization [facility] [employer] [facility] tem Address [id number] [address] [place] [address] Care Team Providers Care Extruding Press Adjuster Name Role Phone Unavailable Primary Care Provider Unavailabl e Encounter Details Date Type Department Care Team (Latest Contact Info) Description 02/15/2025 Travel Social History Tobacco Use Types Packs/Day Years Used Date Smoking Tobacco: Former Cigarettes Smokeless Tobacco: Never Alcohol Use Standard Drinks/Week Comments Yes 4 (1 standard drink = 0.6 oz pur e alcohol) ocassionally Comments Unknown Sex and Gender Information Value Date Recorded Sex Assigned at Not on file Legal Sex Female 1:20 PM EDT Gender Identity Not on file Sexual Orientation Not on file documented as of this encounter Plan of Treatment Upcoming Encounters Date Type Department Care Team (Late st Contact Info) Description 02/24/2025 10:00 AM EDT Office Visit [facility] Gynecology Oncology, A Department of [address] [place] [address] Lynda Anders MD [address] [place] [address], [address] [place] [address] documented as of this encounter Visit Diagnoses Not on filedocumented in this encounter
--- OUTSIDE RECORDS SUMMARY | 2025-02-21 12:13 | XMS_ITS | Encounter Summary ---
Author Organization [facility] [employer] [facility] tem Address [id number] [address] [place] [address] Care Team Providers Care Water [employer] Sewer Systems Supervisor Name Role Phone Unavailable Primary Care Provider Unavailabl e Encounter Details Date Type Department Care Team (Late st Contact Info) Description 02/13/2025 [facility] [address] [place] [phone] External, Scanning Provider Pain (Primary Dx) Social History Tobacco Use Types Packs/Day Years [...] Description 02/24/2025 10:00 AM EDT Office Visit [facility] Gynecology Oncology, A Department of [address] [place] [address] Lynda Anders MD [address] [place] [address], [address] [place] [address] documented as of this encounter Results * Ultrasound pelvic complete (02/02/2025 4:30 PM EDT) us Scanning Provider External IMG US ORDERABLES Fin al Result * CT abdomen and pelvis without contrast (02/02/2025 3:35 PM EDT) us Scanning Provider External IMG CT ORDERABLES Fin al Result documented in this encounter Visit Diagnoses Diagnosis Pain- Primary Generalized pain documented in this encounter
--- OUTSIDE RECORDS SUMMARY | 2025-02-21 12:13 | XMS_ITS | Encounter Summary ---
Author Organization [facility] Address [address] [place] [address] Care Team Providers Care Pediatrics Teacher Name Role Phone Unavailable Primary Care Provider Unavailabl e Encounter Details Date Type Department Care Team (Late st Contact Info) Description 02/08/2025 Telephone [facility] [address] [place] [address] [place] [phone] Debra Salas LPN Social History Tobacco Use Types Packs/Day Years Used Date Smoking Tobacco: Never Assessed Comments No Sex and Gender Information Value Date Recorded Sex Assigned at Not on file Legal Sex Female 9:08 AM EDT Gender Identity Not on file Sexual Orientation Not on file documented as of this encounter Miscellaneous Notes * Telephone Encounter - Debra Salas LPN - 02/08/2025 10:46 AM EDT Please refer to Dr Tabor for evaluation of ovarian mass, thickened endometrium elevated CA 125 documented in this encounter Plan of Treatment Not on file documented as of this encounter Visit Diagnoses Not on filedocumented in this encounter
--- OUTSIDE RECORDS SUMMARY | 2025-02-21 12:13 | XMS_ITS | Encounter Summary ---
Author Organization [facility] Address [address] [place] [address] Care Team Providers Care E Commerce Strategist Name Role Phone Unavailable Primary Care Provider Unavailabl e Encounter Details Date Type Department Care Team (Late st Contact Info) Description 02/08/2025 Telephone [facility] [address] [place] [place] [address] Ceferino Barboza DO [address] [facility] [address] [place], [place] [id number] Social History Tobacco Use Types Packs/Day Years Used Date Smoking Tobacco: Never Assessed Comments No Sex and Gender Information Value Date Recorded Sex Assigned at Not on file Legal Sex Female 9:08 AM EDT Gender Identity Not on file Sexual Orientation Not on file documented as of this encounter Miscellaneous Notes * Telephone Encounter - Cary Tariq LPN - 02/08/2025 12:01 PM EDT I saw Dr Barboza just a short while ago. He had mentioned he said Dr Eden, that I was being referred to in [place]. Could I double check on his name? I am finding an Reagan Leander. I am just trying to make sure that he is in my network. Um, you can call me back at, , thank you. Patient call was returned and she was made aware of the name and that we will send this referral and we will send information in the mail and through [employer]. documented in this encounter Plan of Treatment Not on file documented as of this encounter Visit Diagnoses Not on filedocumented in this encounter
--- OUTSIDE RECORDS SUMMARY | 2025-02-21 12:13 | XMS_ITS | Encounter Summary ---
Author Organization [facility] Address [address] [place] [address] Care Team Providers Care Puffer Tender Name Role Phone Unavailable Primary Care Provider Unavailabl e Encounter Details Date Type Department Care Team (Late st Contact Info) Description 02/08/2025 Abstract [facility] [address] [facility] [address] Ceferino Barboza DO [address] [place], [place] [id number] Social History Tobacco Use Types Packs/Day Years [...]
== END 2025-02-08 00:01 ==
LOC: LAB
PROVIDERS: Visit Provider Obstetrics & Gynecology
DX: C53.0 Malignant neoplasm of endocervix (principal)